=== PATIENT | female | born 1990 ===

== ENCOUNTER 2017-05-27 17:47 | Outpatient (CLI) | payer MEDICAID | END 2017-05-27 19:24 | disposition home or self-care (01) | LOC: TRG 17:47 → LD 17:48 → TRG 19:24 | PROVIDERS: ATTEND Obstetrics & Gynecology Gynecology | DX: O47.1 False labor at or after 37 completed weeks of gestation (principal); Z3A.37 37 weeks gestation of pregnancy | CPT/HCPCS: 59025 ==

== ENCOUNTER 2017-06-04 20:36 | Outpatient (CLI) | payer MEDICAID | END 2017-06-04 23:00 | disposition home or self-care (01) | LOC: TRG 20:36 | PROVIDERS: ATTEND Obstetrics & Gynecology Gynecology | DX: O47.1 False labor at or after 37 completed weeks of gestation (principal); Z3A.38 38 weeks gestation of pregnancy | CPT/HCPCS: 59025 ==

== ENCOUNTER 2017-06-20 17:16 | Inpatient (IN) | payer MEDICAID ==
[2017-06-20] MEDS ORDERED: XYLOCAINE 2% INFILTRATI ONE ×2 (20:49→23:57)
[2017-06-20] MEDS ORDERED: POLYCILLIN/NS 2 GM/100 ML 2 GM/100 ML BAG IV ONE (20:49)
[2017-06-20] MEDS ORDERED: ZOFRAN IV PRN (20:49)
[2017-06-20] MEDS ORDERED: BRETHINE SUB-Q PRN (20:49)
[2017-06-20] MEDS ORDERED: SUBLIMAZE IV PRN (20:49)
[2017-06-20] MEDS ORDERED: MINERAL OIL PO PRN (20:49)
[2017-06-20] MEDS ORDERED: ePHEDrine SULFATE IV PRN ×2 (20:49→23:37)
[2017-06-20] MEDS ORDERED: STADOL IV PRN (20:49)
[2017-06-20] MEDS ORDERED: PHENERGAN PO PRN (20:49)
[2017-06-20] MEDS ORDERED: BRETHINE IVP PRN (20:49)
--- NOTE | 2017-06-20 20:49 | History and Physical Report ---
History of Present Illness Date of examination: 06/20/17 Chief complaint: Labor History of present illness: Pt is a 27yo BF EDC 06/14/17; EGA 40 6/7 weeks presents to L&D complaining of RUC's q 3-4 mins. She had care earlier in this , but none over the past 3 months, and course has been unremarkable. records are not available. GBS is unknown. Past History Past Medical History: no pertinent history Past Surgical History: other (abdominoplasty) Family/Genetic History: none Social history: no significant social history, single - Obstetrical History Expected Date of Delivery: 06/14/17 Actual Gestation: 41 Week(s) 0 Day(s) : 4 Medications and Allergies Allergies Allergy/AdvReac Type Severity Reaction Status Date / Time No Known Allergies Allergy Verified 06/20/17 20:53 Home Medications Medication Instructions Recorded Confirmed Last Taken Type No Known Home Medications [No 06/04/17 06/04/17 Unknown History Reported Home Medications] Review of Systems All systems: negative - Vital Signs Vital signs: Vital Signs Pulse BP 122 H 126/85 06/20/17 17:31 06/20/17 17:31 Temp Pulse Resp BP Pulse Ox 98.4 F 118 H 20 116/76 96 06/20/17 17:32 06/20/17 20:49 06/20/17 17:32 06/20/17 20:03 06/20/17 20:49 - Physical Exam Breasts: Positive: deferred Cardiovascular: Regular rate Lungs: Positive: Clear to auscultation Genitourinary (Female): Positive: normal external genitalia Vagina: Positive: normal moisture Uterus: Positive: enlarged Extremities: Positive: normal - Obstetrical FHR: category 1 Uterine Contraction Monitor Mode: External Cervical Dilatation: 3.5 Cervical Effacement Percentage: 70 station: -2 Uterine Contraction Pattern: Regular Uterine Tone Measurement Phase: Contraction Uterine Contraction Intensity: Moderate Results Result Diagrams: 06/20/17 21:42 All other labs normal. Assessment and Plan - Patient Problems (1) 40 weeks gestation of Onset Date: 06/20/17 Current Visit: Yes Status: Acute Plan to address problem: A: IUP @ 40 6/7 weeks in labor Insufficient care Unknown GBS P: Admit to L&D for expectant vaginal delivery Obtain labs IV Ampicillin
[2017-06-20] MEDS ORDERED: PITOCin/NS 20 UNIT/1000ML DRIP 20 UNITS/1,000 ML BAG IV SCH (21:00)
[2017-06-20] MEDS ORDERED: PITOCin/NS 30 UNIT/500ML 30 UNITS/500 ML BAG IV SCH ×2 (21:00)
[2017-06-20 22:09] LABS: Hematocrit 30.3 % (30.3-42.9); Hemoglobin 9.6 gm/dl (10.1-14.3); Mean Corpuscular HGB Conc 32 % (30-34); Mean Corpuscular Hemoglobin 26 pg (28-32); Mean Corpuscular Volume 82 fl (79-97); Platelet Count 258 K/mm3 (140-440); Red Blood Count 3.68 M/mm3 (3.65-5.03); Red Cell Distribution Width 14.7 % (13.2-15.2)
[2017-06-20] MEDS: LACTATED RINGERS 1,000 ML IV SCH ×2 (22:26→23:00)
[2017-06-20 23:21] LABS: Hepatitis C Virus Antibody Non-Reactive (NonReactive)
[2017-06-20] MEDS ORDERED: NARCAN 2 MG/2 ML IV PRN (23:37)
[2017-06-20] MEDS ORDERED: fentaNYL-BUPIV 2 MCG/ML-0.125% 200 MCG/100 ML BAG EPIDURAL SCH (23:45)
--- NOTE | 2017-06-21 00:37 | Anesthesia Consultation ---
Anesthesia Consult and Med Hx Date of service: 06/21/17 - Airway Anesthetic Teeth Evaluation: Good ROM Head & Neck: Adequate Mental/Hyoid Distance: Adequate Mallampati Class: Class II Intubation Access Assessment: Probably Good - Pulmonary Exam CTA: Yes - Cardiac Exam Cardiac Exam: RRR - Pre-Operative Health Status ASA Pre-Surgery Classification: ASA3 Proposed Anesthetic Plan: Epidural, Spinal - Pulmonary Hx Smoking: Yes Hx Asthma: No COPD: No Hx Pneumonia: No - Cardiovascular System Hx Hypertension: No - Central Nervous System Hx Seizures: No Hx Psychiatric Problems: No - Endocrine Hx Renal Disease: No Hx End Stage Renal Disease: No Hx Hypothyroidism: No Hx Hyperthyroidism: No - Hematic Hx Anemia: No Hx Sickle Cell Disease: No - Other Systems Hx Alcohol Use: No
--- NOTE | 2017-06-21 00:39 | Anesthesia Day of Surgery ---
Anesthesia Day of Surgery - Day of Surgery Patient Examined: Yes Patient H&P Reviewed: Yes Patient is NPO: Yes
[2017-06-21] MEDS: AMPICILLIN/NS 1 GM/50 ML 1 GM/50 ML BAG IV SCH ×2 (02:05→06:06)
[2017-06-21 03:05] LABS: Rubella IgG Antibody Immune (Immune)
[2017-06-21] MEDS: LACTATED RINGERS 1,000 ML IV SCH (04:00)
[2017-06-21] MEDS ORDERED: MARCAINE 0.5% 30 ML INFILTRATI ONE (04:13)
[2017-06-21] MEDS ORDERED: SUBLIMAZE ONE (04:45)
--- NOTE | 2017-06-21 07:12 | Procedure Note ---
OB Delivery Note - Delivery Date of Delivery: 06/21/17 Surgeon: ALEXA LAM Estimated blood loss: 100cc - Vaginal Delivery presentation: vertex Delivery position: OA Intrapartum events: PROM->1hr before delivery Delivery induction: none Delivery augmentation: pitocin Delivery monitor: external FHT, external uterine Route of delivery: Delivery placenta: spontaneous Delivery cord: nuchal cord, 3 umbilical vessels Episiotomy: none Delivery laceration: none Anesthesia: epidural Delivery comments: delivered OA and placed on Mom's chest for [id number] bonding and delayed cord clamping and cut by Dad - A at 1 minute: 8 at 5 minutes: 9 Infant Gender: Male ([id number])
[2017-06-21] MEDS ORDERED: PHENERGAN PR PRN (07:16)
[2017-06-21] MEDS ORDERED: TUCKS PAD TP PRN (07:16)
[2017-06-21] MEDS ORDERED: BENADRYL PO PRN (07:16)
[2017-06-21] MEDS ORDERED: LANSINOH TP PRN (07:16)
[2017-06-21] MEDS ORDERED: MILK OF MAGNESIA PO PRN (07:16)
[2017-06-21] MEDS ORDERED: ZOFRAN IV PRN (07:16)
[2017-06-21] MEDS ORDERED: PHENERGAN PO PRN (07:16)
[2017-06-21] MEDS ORDERED: TYLENOL PO PRN (07:16)
[2017-06-21] MEDS ORDERED: PITOCin/NS 20 UNIT/1000ML DRIP 20 UNITS/1,000 ML BAG IV SCH (08:00)
[2017-06-21] MEDS ORDERED: SODIUM CHLORIDE FLUSH SYRINGE 10 ML IV NR (08:00)
[2017-06-21] MEDS: FEOSOL PO SCH ×2 (09:50→21:19)
[2017-06-21] MEDS: PRENATAL VITAMIN PO SCH (09:50)
[2017-06-21] MEDS: COLACE PO SCH ×2 (09:50→21:19)
[2017-06-21] MEDS: MOTRIN PO SCH ×3 (09:51→20:00)
[2017-06-21] MEDS ORDERED: DULCOLAX PR PRN (10:00)
[2017-06-21] MEDS: NORCO 5/325 PO PRN ×2 (11:22→21:19)
[2017-06-21] MEDS ORDERED: PERCOCET 5/325 PO ONE (13:47)
[2017-06-21 14:49] LABS: Amphetamine Screen,Urine PRESUMPTIVE NEGATIVE; Benzodiazepines Screen,Urine PRESUMPTIVE NEGATIVE; Cannabinoid Screen,Urine PRESUMPTIVE NEGATIVE; Cocaine Screen,Urine PRESUMPTIVE NEGATIVE; Methadone Screen,Urine PRESUMPTIVE NEGATIVE; Opiate Screen,Urine PRESUMPTIVE NEGATIVE
[2017-06-21 18:08] LABS: Hematocrit 28.8 % (30.3-42.9); Hemoglobin 9.3 gm/dl (10.1-14.3)
[2017-06-22] MEDS: NORCO 5/325 PO PRN ×4 (04:13→21:58)
[2017-06-22] MEDS: MOTRIN PO SCH ×4 (04:14→21:57)
[2017-06-22] MEDS ORDERED: BOOSTRIX IM ONE (07:16)
[2017-06-22] MEDS ORDERED: M-M-R II VACCINE SUB-Q ONE (07:16)
--- NOTE | 2017-06-22 08:47 | Progress Note ---
Assessment and Plan - Patient Problems (1) 40 weeks gestation of Onset Date: 06/20/17 Current Visit: Yes Status: Resolved (2) (normal spontaneous vaginal delivery) Onset Date: 06/22/17 Current Visit: Yes Status: Resolved Plan to address problem: A: S/P - PPD #1 Doing well Asymptomatic anemia - stable P: May go home tomorrow. Subjective - Subjective Date of service: 06/22/17 Principal diagnosis: s/p - PPD #1 Interval history: Pt is feeling well without complaints. Bleeding improved. Patient reports: appetite normal, voiding normally, pain well controlled, flatus , ambulating normally, no nauseated [place]: doing well, bottle feeding Objective - Vital Signs Latest vital signs: Vital Signs Temp Pulse Resp BP BP Pulse Ox 06/22/17 00:38 98.2 F 102 H 20 123/57 98 06/21/17 21:13 98.0 F 96 H 20 106/71 89 06/21/17 16:50 98.2 F 94 H 18 102/52 06/21/17 09:00 99.2 F 98 H 16 112/80 98 Intake and Output 06/21/17 06/22/17 06/22/17 22:59 06:59 14:59 Intake Total 240 480 Output Total 400 Balance -160 480 Intake: Oral 120 240 Intake, Free Water 120 240 Output: Urine 400 Void 400 Other: Total, Intake Amount 120 240 Total, Output Amount 400 # Voids Void 1 2 - Exam Breasts: Present: deferred Cardiovascular: Present: Regular rate Lungs: Present: Clear to auscultation Abdomen: Present: normal appearance, soft Uterus: Present: normal, firm, fundal height below umbilicus Extremities: Present: normal - Labs Labs: Abnormal lab results 06/21/17 Range/Units 17:54 Hgb 9.3 L (10.1-14.3) gm/dl Hct 28.8 L (30.3-42.9) % Laboratory Tests 06/20/17 06/20/17 06/20/17 21:41 21:42 21:42 WBC 11.8 H RBC 3.68 Hgb 9.6 L Hct 30.3 MCV 82 MCH 26 L MCHC 32 RDW 14.7 Plt Count 258 Urine Opiates Screen Urine Methadone Screen Ur Barbiturates Screen Ur Phencyclidine Scrn Ur Amphetamines Screen U Benzodiazepines Scrn Urine Cocaine Screen U Marijuana (THC) Screen Drugs of Abuse Note RPR Nonreactive Hep Bs Antigen Hepatitis C Antibody HIV 1&2 Antibody Rapid HIV P24 Antigen Rubella IgG Antibody Blood Type A POSITIVE Antibody Screen Negative 06/20/17 06/20/17 06/20/17 21:46 21:46 21:46 WBC RBC Hgb Hct MCV MCH MCHC RDW Plt Count Urine Opiates Screen Urine Methadone Screen Ur Barbiturates Screen Ur Phencyclidine Scrn Ur Amphetamines Screen U Benzodiazepines Scrn Urine Cocaine Screen U Marijuana (THC) Screen Drugs of Abuse Note RPR Hep Bs Antigen Non-reactive Hepatitis C Antibody Non-reactive HIV 1&2 Antibody Rapid Non react HIV P24 Antigen Non react Rubella IgG Antibody Immune Blood Type Antibody Screen 06/21/17 06/21/17 14:10 17:54 WBC RBC Hgb 9.3 L Hct 28.8 L MCV MCH MCHC RDW Plt Count Urine Opiates Screen Presumptive negative Urine Methadone Screen Presumptive negative Ur Barbiturates Screen Presumptive negative Ur Phencyclidine Scrn Presumptive negative Ur Amphetamines Screen Presumptive negative U Benzodiazepines Scrn Presumptive negative Urine Cocaine Screen Presumptive negative U Marijuana (THC) Screen Presumptive negative Drugs of Abuse Note Disclamer RPR Hep Bs Antigen Hepatitis C Antibody HIV 1&2 Antibody Rapid HIV P24 Antigen Rubella IgG Antibody Blood Type Antibody Screen
--- NOTE | 2017-06-22 08:54 | Discharge Summary ---
Providers - Providers Date of Admission: 06/20/17 20:48 Date of discharge: 06/23/17 Attending physician: ALEXA LAM Primary care physician: ALEXA LAM Hospitalization Reason for admission: active labor, IUP at term Delivery: Episiotomy: none Laceration: none Incision: normal Other procedures: none complications: none Discharge diagnosis: IUP at term delivered [place] baby: male Hospital course: Unremarkable. Condition at discharge: Good Disposition: DC-01 TO HOME OR SELFCARE - Discharge Diagnoses (1) 40 weeks gestation of Status: Resolved (2) (normal spontaneous vaginal delivery) Status: Resolved Plan - Discharge Medications Prescriptions: Ferrous Sulfate [Feosol 325 MG tab] 325 mg PO BID #60 tablet Ibuprofen [Motrin 600 MG tab] 600 mg PO Q6H #30 tablet Vit-Fe Fumar-FA [ Vitamin] 1 each PO QDAY #30 tablet - Provider Discharge Summary Activity: routine, no sex for 6 weeks, no heavy lifting 4 weeks, no strenuous exercise Diet: routine Instructions: routine Additional instructions: [] Smoking cessation referral if applicable(refer to patient education folder for contact #) [] Refer to [facility] Booklet Call your doctor immediately for: * Fever > 100.5 * Heavy vaginal bleeding ( >1 pad per hour) * Severe persistent headache * Shortness of breath * Reddened, hot, painful area to leg or breast * Drainage or odor from incision. * Keep incision clean and dry at all times and follow doctor's instructions regarding bathing/showering - Follow up plan Follow up: ALEXA LAM MD [Primary Care Provider] - 6 Weeks
[2017-06-22] MEDS: PRENATAL VITAMIN PO SCH (09:55)
[2017-06-22] MEDS: FEOSOL PO SCH ×2 (09:55→21:57)
[2017-06-22] MEDS: COLACE PO SCH ×2 (09:55→21:57)
[2017-06-22] MEDS ORDERED: DERMOPLAST TP PRN (16:02)
[2017-06-23] MEDS: MOTRIN PO SCH ×2 (06:11→13:06)
[2017-06-23] MEDS: NORCO 5/325 PO PRN ×2 (06:11→13:05)
[2017-06-23] MEDS: PRENATAL VITAMIN PO SCH (09:43)
[2017-06-23] MEDS: FEOSOL PO SCH (09:43)
[2017-06-23] MEDS: COLACE PO SCH (09:43)
[2017-06-23 17:15] VITALS: BP 124/72
== END 2017-06-23 13:06 | disposition home or self-care (01) | DRG 775 ==
LOC: TRG 17:16 → LD 20:48 → OB 06-21 09:13
PROVIDERS: ADMIT Obstetrics & Gynecology; ATTEND Obstetrics & Gynecology
PROC: 10E0XZZ Delivery of Products of Conception, External Approach (ICD-10-PCS; principal; 2017-06-21)
PROC: 3E0R3BZ Introduction of Anesthetic Agent into Spinal Canal, Percutaneous Approach (ICD-10-PCS; 2017-06-21)
PROC: 00HU33Z Insertion of Infusion Device into Spinal Canal, Percutaneous Approach (ICD-10-PCS; 2017-06-21)
DX: O42.02 Full-term premature rupture of membranes, onset of labor within 24 hours of rupture (principal); O69.1XX0 Labor and delivery complicated by cord around neck, with compression, not applicable or unspecified; O90.81 Anemia of the puerperium; D64.9 Anemia, unspecified; Z3A.40 40 weeks gestation of pregnancy; Z37.0 Single live birth
CPT/HCPCS: 36415; 80307; 85014; 85018; 85027; 86592; 86706; 86762; 86803; 86850; 86900; 86901; 87806; J0290; J0595; J2590; J3010; J7120